=== PATIENT | female | born 1995 | race Caucasian/White ===

== ENCOUNTER 2020-08-31 16:02 | Emergency (ER) | payer SELFPAY ==
[~2020-08-31] VITALS: Ht 157.5 cm; Wt 81.6 kg
[2020-08-31 16:08] VITALS: BP 153/102
--- NOTE | 2020-08-31 16:15 | NUR ---
Patient ambulated to bed 07 with steady/even gait.
--- NOTE | 2020-08-31 16:18 | NUR ---
25 y/o F coming in from home with c/o anxiety attack. Patient states she was driving home from work an hour ago and began experiencing shortness of breath. Patient states this has never happened before, and upon assessment states that the shortness of breath has resolved on its own. Patient states associated nausea and dry mouth x 4 hrs. Patient states vomiting x 1 episode, nighttime on 08/30/20 "white, watery," no vomiting today. Patient denies fever, chills, chest pain, SOB, abdominal pain, fever/chills, cold, cough, exposure to Covid + patients. Patient states appetite and diet normal. Pt denies any recent stressors. Pt placed onto blood pressure cuff, pulse ox. Bed locked in lowest position, side rails x 1. PMH/Sx/Meds: Denies NKA
--- NOTE | 2020-08-31 16:25 | NUR ---
ROSSY Arreaga is evaluating patient at bedside.
[2020-08-31] MEDS ORDERED: HYDR-1093 PO (16:34)
[2020-08-31 16:45] VITALS: BP 153/102
--- NOTE | 2020-08-31 16:45 | NUR ---
Patient discharged with v/s stable. Written and verbal after care instructions given and explained. Patient alert, oriented and verbalized understanding of instructions. Ambulatory with steady gait. All questions addressed prior to discharge. ID band removed. Patient advised to follow up with PMD. Rx of Hydroxyzine Hcl given. Patient educated on indication of medication including possible reaction and side effects. Opportunity to ask questions provided and answered.
== END 2020-08-31 16:45 | disposition home or self-care (01) ==
LOC: MED 16:02
DX: F41.9 Anxiety disorder, unspecified (principal); R03.0 Elevated blood-pressure reading, without diagnosis of hypertension
CPT/HCPCS: 99283

== ENCOUNTER 2020-10-30 20:00 | Emergency (ER) | payer SELFPAY ==
[~2020-10-30] VITALS: Ht 160 cm; Wt 65.8 kg
[2020-10-30 20:00] VITALS: BP 134/83
[~2020-10-30 20:00] MED LIST: HYDR-1093 PO
[2020-10-30 21:15] VITALS: BP 135/82
== END 2020-10-30 21:15 | disposition home or self-care (01) ==
LOC: MED 20:00
DX: F10.129 Alcohol abuse with intoxication, unspecified (principal); Z02.89 Encounter for other administrative examinations; Z79.899 Other long term (current) drug therapy; V49.40XA Driver injured in collision with unspecified motor vehicles in traffic accident, initial encounter; Y93.89 Activity, other specified; Y92.89 Other specified places as the place of occurrence of the external cause; Y99.8 Other external cause status
CPT/HCPCS: 99283